=== PATIENT | female | born 1995 | race Caucasian/White ===

== ENCOUNTER 2016-03-19 14:33 | Emergency (ER) ==
[2016-03-19 15:24] LABS: URINE MICRO REVIEW NEEDED? NO; URINE SOURCE CLEAN CATCH
[2016-03-19 15:28] LABS: BILIRUBIN URINE NEGATIVE (NEGATIVE); BLOOD URINE NEGATIVE (NEGATIVE); COLOR YELLOW; GLUCOSE URINE NEGATIVE (NEGATIVE); LEUKOCYTES URINE LARGE (NEGATIVE); NITRITE URINE NEGATIVE (NEGATIVE); PROTEIN URINE TRACE mg/dL (NEGATIVE); SP GRAVITY URINE 1.022; TURBIDITY URINE CLEAR (CLEAR); UR EPITHELIAL CELLS <10 /HPF (<10); URINE BACTERIA 2+ /HPF; URINE CULTURE NEEDED? YES; URINE RBC <10 /HPF (<10); UROBILINOGEN URINE NORMAL (NORMAL)
[2016-03-19] MEDS ORDERED: NS 1,000 ML IV ONE (15:37)
--- NOTE | 2016-03-19 15:43 | PROVIDER DOCUMENTATION ---
HPI-Female /OB/Breast - General Chief Complaint: Abdominal Pain Stated Complaint: ABD PAIN (9 WKS PREG) Time Seen by Provider: 03/19/16 15:24 Source: reports: patient Allergies/Adverse Reactions: Patient Allergies Allergy/AdvReac Type Severity Reaction Status Date / Time amoxicillin trihydrate * Allergy HIVES Verified 03/19/16 15:46 [From Augmentin] ibuprofen Allergy Unknown Verified 03/19/16 15:46 lorazepam [From Ativan] Allergy ANAPHYLAXIS Verified 03/19/16 15:46 meperidine HCl * Allergy HIVES Verified 03/19/16 15:46 [From Demerol] potassium clavulanate * Allergy HIVES Verified 03/19/16 15:46 [From Augmentin] butorphanol tartrate * AdvReac Unknown Verified 03/19/16 15:46 [From Stadol] Home Medications: Acetaminophen [Tylenol] 1,000 mg PO TID 03/19/16 - History of Present Illness-Female /OB Nature of Presenting Problem: 20 yo WF with 9 weeks reports lower abd/suprpubic pain which is a more prominent when she is urinating. She has nausea and vomiting. She feels weak and has been dizzy all morning describing room spinning. Location of complaint: reports: suprapubic Radiation: reports: suprapubic Quality of Pain: reports: aching, sharp Severity in ED: reports: moderate Onset/Duration: reports: 2 days ago Timing: reports: still present Context/Activities at Onset: reports: none Vaginal Symptoms: reports: no symptoms Vaginal Bleeding Amount: Spotting Urinary Symptoms: reports: dysuria, urgency, low back pain Related Symptoms: reports: pelvic pain Leakage of Fluid: none Modifying Factors: improves with: urinating Associated Symptoms: reports: dizziness, fatigue, malaise Similar Symptoms Previously?: No Recently seen or treated by another doctor?: No - LMP/ History Care: clinic ([facility] Review of Systems - Adult - REVIEW OF SYSTEMS - ADULT Constitutional: reports: jeanne. denies: weight gain, weight loss Eyes: reports: no symptoms reported Ears, Nose, Mouth & Throat: reports: no symptoms reported. denies: ear pain Cardiovascular: reports: no symptoms reported Respiratory: reports: no symptoms reported Gastrointestinal: reports: diarrhea, nausea, poor appetite Genitourinary: reports: see HPI, dysuria Musculoskeletal: reports: no symptoms reported Integumentary: reports: no symptoms reported Neurological: reports: no symptoms reported Psychiatric: reports: no symptoms reported Endocrine: reports: no symptoms reported Hematologic/Lymphatic: reports: no symptoms reported Allergic/Immunologic: reports: no symptoms reported All Other Systems: Reviewed and Negative Past History - Adult - PAST MEDICAL HISTORY-ADULT Review of Records: reports: Old Records Reviewed, Nursing Assessment Review, Medications Reviewed, Social history reviewed & non-contributory. Genitourinary: reports: denies history Other Conditions: reports: other (hypoglycemia) - FAMILY HISTORY Family History: other (hypertension) - SOCIAL HISTORY Smoking: cigarettes, less than 1 pack/day Substance Use: none/never Alcohol Use Frequency: never Living Situation: alone Physical Exam-General - PHYSICAL EXAM-ADULT Initial Vital Signs Reviewed: Yes - CONSTITUTIONAL General Appearance: alert, mild distress (got dizzy talking to me) - EYES Eyes: PERRL/EOMI, pink conjunctivae - HEAD, EARS, NOSE, MOUTH & THROAT HENMT: other (oral mucosa a little dry, normal color) - NECK Neck: non-tender, full range of motion - RESPIRATORY Respiratory: lungs clear, normal breath sounds, no respiratory distress - CARDIOVASCULAR Cardiovascular: normal peripheral pulses, regular rate, rhythm - GASTROINTESTINAL (ABDOMEN) Abdominal Exam: tenderness (suprapubic tenderness, no adnexal tenderness, upper abdomen is normal) - GENITOURINARY Female Genitalia/Pelvic Exam: deferred - MUSCULOSKELETAL Back Exam: no CVA tenderness Extremity: normal range of motion, non-tender, no pedal edema - SKIN Integumentary: normal color - NEUROLOGIC Neurologic: grossly normal - PSYCHIATRIC Psych/Mental Status: normal thought content, anxious Progress - PLAN OF CARE/RESULTS Progress/Plan/Lab Results: Vital Signs Temp Pulse Resp BP Pulse Ox 03/19/16 14:44 98.1 F 109 H 20 128/83 100 amoxicillin trihydrate * [From Augmentin] Allergy (Verified 03/19/16 15:46) HIVES ibuprofen Allergy (Verified 03/19/16 15:46) Unknown lorazepam [From Ativan] Allergy (Verified 03/19/16 15:46) ANAPHYLAXIS meperidine HCl * [From Demerol] Allergy (Verified 03/19/16 15:46) HIVES potassium clavulanate * [From Augmentin] Allergy (Verified 03/19/16 15:46) HIVES butorphanol tartrate * [From Stadol] Adverse Reaction (Verified 03/19/16 15:46) Unknown CAUSES A CHANGE IN MOOD. IE MEMORY LOSE AND ANGER Acetaminophen [Tylenol] 1,000 mg PO TID 03/19/16 I&O 03/18/16 03/19/16 03/20/16 07:59 07:59 07:59 Output Total 20 Balance -20 Laboratory 03/19/16 03/19/16 03/19/16 15:16 15:16 14:47 WBC 17.19 H RBC 4.23 Hgb 12.1 Hct 36.4 L MCV 86.1 MCH 28.6 MCHC 33.2 RDW Std Deviation 18.1 H Plt Count 388 MPV 10.8 H Immature Gran % (Auto) 0.3 Neut % (Auto) 75.3 H Lymph % (Auto) 17.5 L [place] % (Auto) 6.3 Eos % (Auto) 0.3 Baso % (Auto) 0.3 Immature Gran # (Auto) 0.05 H Neut # (Auto) 12.93 H Lymph # (Auto) 3.01 [place] # (Auto) 1.09 H Eos # (Auto) 0.06 Baso # (Auto) 0.05 Sodium 135 L Potassium 3.7 Chloride 99 Carbon Dioxide 23 L Anion Gap 13 BUN 9 Creatinine 0.8 Estimated GFR/1.73 m2 > 60 BUN/Creatinine Ratio 11 Glucose 81 Calculated Osmolality 268 Calcium 9.4 Urine Source Urine Color Urine Turbidity Urine pH Ur Specific [place] Urine Protein Ur Glucose (Stick) Ur Ketones (Stick) Urine Blood Urine Nitrite Urine Bilirubin Urobilinogen Dipstick Urine Leukocytes Urine WBC (Auto) Urine RBC (Auto) U Epithel Cells (Auto) Urine Bacteria (Auto) Urine Test POSITIVE 03/19/16 14:47 WBC RBC Hgb Hct MCV MCH MCHC RDW Std Deviation Plt Count MPV Immature Gran % (Auto) Neut % (Auto) Lymph % (Auto) [place] % (Auto) Eos % (Auto) Baso % (Auto) Immature Gran # (Auto) Neut # (Auto) Lymph # (Auto) [place] # (Auto) Eos # (Auto) Baso # (Auto) Sodium Potassium Chloride Carbon Dioxide Anion Gap BUN Creatinine Estimated GFR/1.73 m2 BUN/Creatinine Ratio Glucose Calculated Osmolality Calcium Urine Source CLEAN CATCH Urine Color YELLOW Urine Turbidity CLEAR Urine pH 6.0 Ur Specific [place] 1.022 Urine Protein TRACE A Ur Glucose (Stick) NEGATIVE Ur Ketones (Stick) NEGATIVE Urine Blood NEGATIVE Urine Nitrite NEGATIVE Urine Bilirubin NEGATIVE Urobilinogen Dipstick NORMAL Urine Leukocytes LARGE A Urine WBC (Auto) 10-20 A Urine RBC (Auto) <10 U Epithel Cells (Auto) <10 Urine Bacteria (Auto) 2+ Urine Test 1736 Feeling much improved, wants something to eat, not dizzy. Discussed all findings, Rx and follow up Departure - Departure Time of Disposition Order: 17:32 DIAGNOSIS: Acute cystitis during in first trimester Disposition: HOME 01 Certified Medical Emergency: Urgent Condition: Stable Prescriptions: Ondansetron HCl [Zofran] 4 mg PO 3-4XDAY PRN PRN #10 tablet PRN Reason: Nausea Nitrofurantoin Macrocrystal [Nitrofurantoin] 100 mg PO BID #10 capsule
[2016-03-19 15:47] LABS: MANUAL DIFF NEEDED? NO
[2016-03-19 15:56] LABS: BASO% 0.3 % (0.0-0.8); EOS# 0.06 X1000 (0.0-0.7); EOS% 0.3 % (0.0-10.0); HEMATOCRIT 36.4 % (37.0-47.0); HEMOGLOBIN 12.1 g/dL (12.0-16.0); IMM GRAN# 0.05 X1000 (0.0-0.04); IMM GRAN% 0.3 % (0.0-0.5); LYMPH# 3.01 X1000 (1.2-3.4); LYMPH% 17.5 % (20.5-51.1); MCH 28.6 PG (27-31); MCHC 33.2 g/dL (33-37); MCV 86.1 FL (81-99); MONO# 1.09 X1000 (0.11-0.59); MONO% 6.3 % (1.7-9.3); MPV 10.8 FL (7.4-10.4); NEUT% 75.3 % (42.2-75.2); PLT 388 X1000 (130-400); RBC 4.23 XMIL (4.2-5.4)
[2016-03-19 16:08] LABS: AGAP 13; BUN 9 mg/dL (8-22); CALCIUM 9.4 mg/dL (8.8-10.2); CHLORIDE 99 mmol/L (98-107); COSMO 268; POTASSIUM 3.7 mmol/L (3.5-5.1); SODIUM 135 mmol/L (136-145); TCO2 23 mmol/L (25-35)
[2016-03-19] MEDS ORDERED: ZOFRAN IV ONE (16:24)
[2016-03-19] MEDS ORDERED: MACRODANTIN PO ONE (17:05)
[2016-03-19 18:00] VITALS: BP 104/62
== END 2016-03-19 17:59 | disposition home or self-care (01) ==
LOC: ED 14:33
DX: O23.11 Infections of bladder in pregnancy, first trimester (principal); N30.00 Acute cystitis without hematuria; O26.891 Other specified pregnancy related conditions, first trimester; R10.30 Lower abdominal pain, unspecified; R10.9 Unspecified abdominal pain; R11.0 Nausea; R53.1 Weakness; R42 Dizziness and giddiness; R30.0 Dysuria; R39.15 Urgency of urination; M54.5 Low back pain; R10.2 Pelvic and perineal pain; R10.819 Abdominal tenderness, unspecified site; O21.9 Vomiting of pregnancy, unspecified; O26.811 Pregnancy related exhaustion and fatigue, first trimester; O99.331 Smoking (tobacco) complicating pregnancy, first trimester; F17.210 Nicotine dependence, cigarettes, uncomplicated; Z3A.09 9 weeks gestation of pregnancy; Z82.49 Family history of ischemic heart disease and other diseases of the circulatory system
CPT/HCPCS: 80048; 81001; 81025; 84702; 85025; 87088; 96361; 96374; J2405